=== PATIENT | female | born 1970 | race Two or more races ===

== ENCOUNTER 2024-08-15 08:14 | Outpatient (AMB) | payer MEDICAID, SELFPAY ==
[2024-08-15 08:34] VITALS: BP 144/89; PULSE 75; RESP 18; TEMP 36.7; O2SAT 98; BMI 26.9
--- NOTE | 2024-08-15 08:34 | PD.ORTHCLVIS ---
Vital signs 08/15/24 08:34 Height 1.6 m Height Method Stated Weight 69.116 kg Weight Measurement Method Standing Scale BMI 26.9 BP 144/89 H Blood Pressure Source Automatic Cuff Blood Pressure Location Right Upper Arm Position Sitting Respiration 18 Pulse 75 Pulse Source Monitor Temp 98.0 F Temp Source Temporal Artery Scan Pulse Oximetry (%) 98 Oxygen Delivery Method Room Air Med/Allergies Allergies & Medications Allergies No Known Drug Allergies Allergy (Verified 08/15/24 08:35) Medication Reconciliation meloxicam 7.5 mg tablet 7.5 mg PO QDAY #45 tabs 08/15/24 [Rx] multivitamin 1 tab PO QDAY 08/15/24 [History Confirmed 08/15/24] Exam Exam Patient is in no acute distress and is cooperative with the examination today. Breathing is nonlabored. In no respiratory distress. Patient has no paraspinal tenderness. Spinal deformity cannot be appreciated. The gait of the patient is nonantalgic Bilateral extremities were evaluated and demonstrates sensation intact to light touch. Palpable pedal pulses are present. No significant edema is present. Bilateral knees were examined and the patient has full strength and range of motion.. The right hip was examined.There is no pain with logroll The left hip was examined. Patient was able to flex to 90 degrees, adduct to 30 degrees, abduct to 40 degrees, internally rotate to 10 degrees, and externally rotate to 20 degrees. Patient has a Positive logroll X-rays of the left hip were reviewed. This is from [facility]. This demonstrates mild to moderate osteoarthritis of the left hip with joint space narrowing primarily inferiorly. Assessment and Plan Problem List (1) Arthritis of left hip: Status: Acute Plan: Patient is a 53-year-old female with left hip pain and left hip arthritis. It is of mild to moderate severity. We recommend continue nonoperative treatment for now. We recommend continued activity and staying active as well as anti-inflammatories. I sent her close prescription for meloxicam. We discussed that we can see her approximately every year just to check on her hip. It does look like it is a little early for hip replacement at this time as she is still functioning well. Office Procedures GNS Level of Care Nursing/Assessment Patient Status: Initial/New Patient Nursing Assessment/Reassesment: Medication Reconciliation, Update PMH in EMR and Vital Signs Coordination of Care: Complex Care and Chronic Disease 1-5, Education Complex Pt/Fam, Consent,records obtained, informed consent, Results/Orders obtained and Staff clarify orders Special Needs: Language special needs New Patient Charge New Patient Point Assignment: 1094 New Patient Point Charge: CUSTOMER SERVICE AGENT Level 3 ([id number]) MA Intake Visit Data Collection New Patient or Established: New Patient (never been to [facility]) Seen by Clinical Staff ONLY (RN/MA): No Clutch Mechanic Required: Yes PCP or OBGYN visit in last 3 months: Yes Hx Now: No Do You Feel Safe at Home: Yes Authorities Contacted: N/A Questionairres Past Medical History Past Medical History Have you ever been diagnosed with any of the following: Subjective Visit Visit for: new patient Immunization / Flu Flu Vaccine in the Last 12 Months: No Flu Vaccine Exclusion Criteria: No Exclusion Criteria History of Present Illness Chief complaint: Left hip pain Antoinette is a pleasant 53-year-old female with left hip pain and left hip arthritis. She had a prior right hip replacement [address] Harrison at [place]. The pain just started recently. She is on naproxen for the pain. She has not had any injections. She is not had any physical therapy. Pain Pain level (0-10): 3 Pain duration: COMES AND GOES Pain location: inside (medial) Pain quality: dull and aching Pain timing: increases with activity Associated signs & symptoms: none Ambulatory data Ambulatory device: none Treatments Improvement with previous injections: No Improvement with PT: No Improvement with NSAIDS: no Review of Systems Review of Systems: All systems negative unless otherwise noted in HPI.
== END 2024-08-15 08:49 | disposition home or self-care (01) ==
PROVIDERS: PCP Nurse Practitioner Family; Referring Provider Nurse Practitioner Family; Supervising Provider Orthopaedic Surgery Adult Reconstructive Orthopaedic Surgery; Visit Provider Orthopaedic Surgery Adult Reconstructive Orthopaedic Surgery
DX: M16.12 Unilateral primary osteoarthritis, left hip (principal); M25.552 Pain in left hip
CPT/HCPCS: 99203; G0463